=== PATIENT | female | born 1955 | race Caucasian/White ===

== ENCOUNTER 2020-08-17 13:10 | Emergency (ER) | payer SELFPAY ==
[~2020-08-17] VITALS: Ht 152.4 cm; Wt 67.2 kg
[2020-08-17 13:25] VITALS: BP 136/68
== END 2020-08-17 15:00 | disposition home or self-care (01) ==
LOC: ER 13:10
DX: R06.02 Shortness of breath (principal); Z53.21 Procedure and treatment not carried out due to patient leaving prior to being seen by health care provider
CPT/HCPCS: 93005